=== PATIENT | female | born 1985 | race African-American/Black ===

== ENCOUNTER 2019-03-10 13:39 | Emergency (ER) | payer SELFPAY ==
[~2019-03-10] VITALS: Ht 165.1 cm; Wt 61.2 kg
[2019-03-10 14:47] VITALS: BP 117/72
== END 2019-03-10 14:44 | disposition home or self-care (01) ==
LOC: FSED 13:39
DX: R10.2 Pelvic and perineal pain (principal); N80.3 Endometriosis of pelvic peritoneum
CPT/HCPCS: 81003; 81025; 99283